=== PATIENT | male | born 1980 | race Caucasian/White ===

== ENCOUNTER 2018-12-03 22:45 | Observation (INO) ==
--- NOTE | 2018-12-03 23:00 | Emergency Department Note ---
Disposition Clinical Impression: Acute psychosis Altered mental status Qualifiers: Altered mental status type: unspecified Qualified Code(s): R41.82 - Altered mental status, unspecified Disposition: Admitted As Inpatient Condition: Fair Referrals: NONE,PCP [Primary Care Provider] - General Adult HPI - General Stated complaint: AMS Time Seen by Provider: 12/03/18 22:45 Source: patient, EMS Nursing Notes Reviewed: Yes Vital Signs Reviewed: Yes - History of Present Illness HPI Narrative: 38-year-old male transferred here from [facility] emergency department for psychiatric consultation. Please refer to Dr. Carlson's note for complete details of the history and physical examination. Patient medically cleared prior to transfer. Test results reviewed. He also had a negative head CT. Patient presented there with some confusion and altered mental status. Family reported he was "crazier than a Zeynep bug". Family was concerned he may have gotten his medications mixed up. He has a prior psychiatric history. Here the patient is awake and alert. He is a very poor historian and difficult to obtain history from. He denies suicidal or homicidal ideation. He denies auditory or visual hallucinations. He just keeps stating that he is not sure and he does not understand. He denies any physical complaints. - Related Data Home Medications Medication Instructions Recorded Confirmed Baclofen 12/03/18 Escitalopram [Lexapro] 10 mg PO DAILY 12/03/18 12/03/18 Quetiapine Fumarate [SEROquel] 100 mg PO HS 12/03/18 12/03/18 lamoTRIgine [Subvenite] 25 mg PO 12/03/18 Allergies Allergy/AdvReac Type Severity Reaction Status Date / Time No Known Allergies Allergy Verified 12/03/18 23:25 All systems ED: reviewed and negative except as stated. 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 Absent: tenderness - Respiratory Respiratory exam: Present: normal lung sounds bilaterally. Absent: respiratory distress, wheezes - Cardiovascular Cardiovascular exam: Present: regular rate, normal rhythm, normal heart sounds - Abdominal Exam Abdominal exam: Present: soft, Non-Tender, normal bowel sounds - Extremities Exam Extremities exam: Absent: pedal edema - Neurological Exam Neurological exam: Present: alert. Absent: motor sensory deficit - Psychiatric Psychiatric exam: Present: anxious - Skin Skin exam: Present: warm, dry, intact, normal color. Absent: cyanosis, diaphoresis Course Course Narrative: 38-year-old male with psychiatric issues. He has been medically cleared at [facility] emergency department and referred here for psychiatric evaluation. Labs reviewed from [facility]. Head CT negative. Exam unremarkable here. Patient denies suicidal or homicidal ideation. He denies auditory or visual hallucinations. [address] psychiatry department consulted to evaluate patient in the emergency department. - Consultations Consultation #1: Patient was seen and evaluated in the emergency department by the [address] chiatry service and after consultation with the on-call psychiatrist patient is being admitted to the [address] psychiatric unit. Time: 01:45 Vital Signs O2 Sat by Pulse Oximetry 94 12/03/18 23:30 Temperature 98.2 F 12/03/18 23:32 Pulse Rate 128 12/03/18 23:32 Respiratory Rate 20 12/03/18 23:32 Blood Pressure 110/95 12/03/18 23:32 O2 Sat by Pulse Oximetry 94 12/03/18 23:32 Oxygen Delivery Oxygen Delivery Room Air Medical Decision Making - EKG Data EKG #1 EKG attestation: Yes I reviewed and interpreted this EKG. EKG results narrative: EKG showed a sinus tachycardia with ventricular rate of 105. No ST segment elevation or depression. No arrhythmia or ectopy. No significant change from prior EKG dated 05/15/2017.
[2018-12-04] MEDS ORDERED: *HR* LORazepam 1 MG TABLET PO ONE (01:13)
[2018-12-04] MEDS ORDERED: *HR* LORazepam 2 MG/ML VIAL IM ONE (01:38)
[2018-12-04] MEDS ORDERED: Haloperidol Lactate 5 MG/ML VIAL IM PRN (02:22)
[2018-12-04] MEDS ORDERED: *HR* LORazepam 1 MG TABLET PO PRN (02:22)
[2018-12-04] MEDS ORDERED: *HR* LORazepam 2 MG/ML VIAL IM PRN (02:22)
[2018-12-04] MEDS ORDERED: hydrOXYzine pamoate 25 MG CAPSULE PO PRN (02:29)
[2018-12-04] MEDS ORDERED: MOM Conc 10 ML UD.LIQ PO PRN (02:29)
[2018-12-04] MEDS ORDERED: traZODone 50 MG TABLET PO PRN (02:29)
[2018-12-04] MEDS ORDERED: Mag Hydrox/Al Hydrox/Simeth 30 ML UDC PO PRN (02:29)
[2018-12-04] MEDS ORDERED: Nicotine 14 MG PATCH.TD24 TD SCH (09:00)
[2018-12-04 09:12] VITALS: BP 113/74
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
--- NOTE | 2018-12-05 10:06 | Electrocardiograph Report ---
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
== END 2018-12-04 11:05 | disposition home or self-care (01) ==
LOC: 1ANU 22:45 → EMEROOARM 22:45 → 1ANU 12-04 02:12
PROVIDERS: ADMIT Psychiatry & Neurology Psychiatry; ATTEND Psychiatry & Neurology Psychiatry